=== PATIENT | female | born 1990 | race Two or more races ===

== ENCOUNTER 2017-09-01 09:33 | Outpatient (CLI) | payer OTHER | END 2017-09-01 09:34 | disposition home or self-care (01) | LOC: LAB 09:33 | PROVIDERS: ATTEND Obstetrics & Gynecology | DX: Z36.9 Encounter for antenatal screening, unspecified (principal) | CPT/HCPCS: 36415; 82950; 85018; 86850 ==

== ENCOUNTER 2017-09-27 09:27 | Outpatient (CLI) | payer OTHER | END 2017-09-27 09:28 | disposition home or self-care (01) | LOC: LAB 09:27 | PROVIDERS: ATTEND Obstetrics & Gynecology | DX: Z36.9 Encounter for antenatal screening, unspecified (principal) | CPT/HCPCS: 36415; 82951 ==

== ENCOUNTER 2017-11-13 10:35 | Outpatient (CLI) | payer OTHER | END 2017-11-13 10:36 | disposition home or self-care (01) | LOC: LAB.R 10:35 | PROVIDERS: ATTEND Obstetrics & Gynecology | DX: Z36.85 Encounter for antenatal screening for Streptococcus B (principal) | CPT/HCPCS: 87081; 87491; 87591 ==

== ENCOUNTER 2017-11-14 10:46 | Outpatient (CLI) | payer OTHER ==
[2017-11-14] MEDS ORDERED: SODIUM CHLORIDE FLUSH 0.9% 10 ML SYRINGE ONE (11:26)
[2017-11-14 15:32] VITALS: BP 111/70
== END 2017-11-14 15:50 | disposition home or self-care (01) ==
LOC: WFO 10:46 → FBP 10:48 → WFO 15:50
PROVIDERS: ATTEND Obstetrics & Gynecology
DX: O32.1XX0 Maternal care for breech presentation, not applicable or unspecified (principal); Z3A.36 36 weeks gestation of pregnancy
CPT/HCPCS: 59412

== ENCOUNTER 2017-12-11 07:28 | Inpatient (IN) | payer OTHER ==
--- NOTE | 2017-12-08 09:39 | PREOP HISTORY & PHYSICAL ---
ANTICIPATED FOR 12/11/2017 IDENTIFICATION: A 27-year-old G4, P2-0-1-2 with a 40-5/7-week intrauterine . EDC is 12/06/2017 with an 8-week ultrasound consistent with dates. HISTORY OF PRESENT ILLNESS: The patient is a patient of [facility] who presents on 12/11/2017 for an elective induction of labor. The patient was a transfer from [facility] to us at 23 weeks' gestation. The patient's has essentially been remarkable only for a threatened at about 9 weeks' gestation, and later, malpresentation and a successful external cephalic version at about 37 weeks' gestation. At patient's last visit with us on 12/05/2017 at 39 weeks 6 days, she was noted to be 1-2 cm dilated, very thick, and -3 station. Cervix was very posterior and firm. I discussed with the patient my recommendation to proceed to an elective induction of labor on 12/11/2017 should she still be . The patient lives 30 minutes away and with her last delivery, she presented at 8 cm dilation. She presented to Labor and Delivery with complaints of her back being sore, not specifically for contractions. The patient is currently doing well. Denies any vaginal bleeding, loss of fluid , or nas contractions. Also of note during this , the patient has expressed her desire for permanent sterilization should she need a delivery. She has signed a 11/13/2017 consent for sterilization. PAST MEDICAL HISTORY 1. Anxiety. 2. Remote history of hepatitis A. PAST SURGICAL HISTORY: None. ALLERGIES: NO KNOWN DRUG ALLERGIES. MEDICATIONS: vitamins. SOCIAL HISTORY: She denies any tobacco, alcohol, or illicit drug use. The patient is to [place]. They have a boy and a girl, Marcos and Ivonne. This is a baby girl with an anticipated name of Nupur. They are in the [employer]. Her pharmacy of choice is the [employer] [facility] pharmacy. PAST OBSTETRICAL HISTORY 1. Two term spontaneous vaginal delivery at 40 weeks' gestation. Her biggest baby was her last delivery of daughter, Ivonne, at 7 pounds 13 ounces. She did only receive an epidural with only her second delivery. 2. She had a spontaneous at 9 weeks' gestation. PAST GYNECOLOGY HISTORY: She denies any abnormal Pap smears or sexually transmitted diseases. She did receive a flu vaccine on July 19 and a Tdap on September 27. FAMILY HISTORY: Cervical cancer in the paternal grandmother, diagnosed at age 31. REVIEW OF SYSTEMS: She denies any nausea, vomiting, fevers, chills, diarrhea, constipation. Negative unless otherwise stated. PHYSICAL EXAMINATION VITAL SIGNS: Weight 183 pounds, height is 65 inches, BMI is 30.5, blood pressure 112/62. GENERAL: The patient is a well-developed, well-nourished, Serbian female in no apparent distress. She is alert and oriented x3. CARDIOVASCULAR: Rate is regular. No murmurs or rubs. LUNGS: Lungs are clear to auscultation bilaterally. ABDOMEN: Gravid, nontender. Fundal height is 36 cm. Baby is vertex on palpation LABORATORY: Data shows her white count of 8.2, H and H of 14.5 and 42.7, platelets 309. Rubella is positive. Antibody screen is negative. CT is negative as well as GC. RPR nonreactive. HIV nonreactive. anatomical survey is within normal limits with a 3-vessel umbilical cord. Cervix is closed with a 4.1 cm length. Placenta is posterior. One hour GTT was 139 and her 3-hour was 85, 127, 104, 94. GBS is negative. ASSESSMENT 1. A 27-year-old G4, P2-0-1-2 with a 40-5/7-week intrauterine . 2. Cervix remote from delivery. PLAN 1. We will anticipate Cytotec cervical ripening assuming that there has been no significant cervical change from her last examination. 2. We will obtain a CBC, type and hold as well as an ABO upon admission. 3. Epidural p.r.n. pain. 4. Expect spontaneous vaginal delivery. TD: 12/07/2017 19:08 MAGDA
[2017-12-11] MEDS ORDERED: fentaNYL 100 MCG/2 ML VIAL IVP PRN (07:30)
[2017-12-11] MEDS ORDERED: ONDANSETRON 4 MG/2 ML VIAL IVP PRN (07:30)
[2017-12-11] MEDS ORDERED: SODIUM CHLORIDE FLUSH 0.9% 10 ML SYRINGE IVP SCH (07:30)
[2017-12-11] MEDS ORDERED: miSOPROStol 100 MCG TABLET BC SCH (08:00)
[2017-12-11 08:55] LABS: BASOPHILS % (AUTO) 0.4 %; EOSINOPHILS # (AUTO) 0.1 10^3/uL (0.0-0.7); EOSINOPHILS % (AUTO) 0.7 %; HGB - HEMOGLOBIN 12.3 g/dL (12.0-16.0); LYMPHOCYTES # (AUTO) 1.6 10^3/uL (1.5-3.5); LYMPHOCYTES % (AUTO) 19.1 %; MEAN CORPUSCULAR HEMOGLOBIN 28.5 pg (27.0-31.0); MEAN CORPUSCULAR HGB CONC 34.3 g/dL (32.0-36.0); MEAN PLATELET VOLUME 7.2 fL (7.9-10.8); MONOCYTES # (AUTO) 0.5 10^3/uL (0.0-1.0); MONOCYTES % (AUTO) 6.3 %; NEUTROPHILS # (AUTO) 6.1 10^3/uL (1.5-6.6); NEUTROPHILS % (AUTO) 73.5 %; PLT - PLATELET COUNT 225 10^3/uL (130-450); RED BLOOD COUNT 4.33 10^6/uL (4.20-5.40); RED CELL DISTRIBUTION WIDTH 14.1 % (12.0-15.0); WHITE BLOOD COUNT 8.3 x10^3/uL (4.8-10.8)
[2017-12-11] MEDS: SODIUM CHLORIDE FLUSH 0.9% 10 ML SYRINGE IVP PRN ×2 (09:13→13:44)
[2017-12-11] MEDS: LACTATED RINGERS 1,000 ML IV SCH ×3 (09:14→17:43)
--- NOTE | 2017-12-11 09:50 | PROVIDER PROGRESS NOTE ---
Labor Progress Note - Uterine Monitoring Uterine Monitoring Mode: positive: External toco Contraction Frequency (min/apart): Q4-10 Contraction Intensity: positive: Mild Uterine Resting Tone: positive: Soft - Monitoring Monitor Mode: positive: External ultrasound Heart Rate Baseline: 140's Heart Rate Variability: positive: Moderate (6-25 bmp) Accelerations: positive: Present, 15x15 Decelerations: positive: None Strip Review: positive: Category I - Vaginal Exam Dilation (in cm): 2 Effacement (%): 50 Station: -2 Cervical Position: Posterior - Labor Progress Note Labor Progress Note/Additional Text: 27 yo with a 40w5d IUP Late term Elective induction of labor; cervix remote from delivery Cytotec induction, 50 mcg bucally Q4 hr PRN Epidural PRN Expect Labs, EKG, Meds, Allergy - Lab Results Lab results reviewed: Yes Fish Bones: 12/11/17 08:20 Other Lab Results: Lab Results x24hrs 12/11/17 Range/Units 08:20 WBC 8.3 (4.8-10.8) x10^3/uL RBC 4.33 (4.20-5.40) 10^6/uL Hgb 12.3 (12.0-16.0) g/dL Hct 35.9 L (37.0-47.0) % MCV 83.0 (81.0-99.0) fL MCH 28.5 (27.0-31.0) pg MCHC 34.3 (32.0-36.0) g/dL RDW 14.1 (12.0-15.0) % Plt Count 225 (130-450) 10^3/uL MPV 7.2 L (7.9-10.8) fL Neut # 6.1 (1.5-6.6) 10^3/uL Lymph # 1.6 (1.5-3.5) 10^3/uL Sharkey # 0.5 (0.0-1.0) 10^3/uL Eos # 0.1 (0.0-0.7) 10^3/uL Baso # 0.0 (0.0-0.1) 10^3/uL Absolute Nucleated RBC 0.00 x10^3/uL Nucleated RBC % 0.0 /100WBC - Medications Medications: Ambulatory Orders Medication Instructions Recorded Confirmed Cyclobenzaprine [Flexeril] 10 mg PO TID PRN #20 tablet 09/26/15 HYDROcod/ACETAM 5/325 [Berclair 5/325] 1 - 2 ea PO Q6H PRN #15 tablet 09/26/15 - Allergy Allergy: Allergies Allergy/AdvReac Type Severity Reaction Status Date / Time No Known Drug Allergies Allergy Verified 09/26/15 07:30 Cyclobenzaprine [Flexeril] 10 mg PO TID PRN #20 tablet 09/26/15 HYDROcod/ACETAM 5/325 [Berclair 5/325] 1 - 2 ea PO Q6H PRN #15 tablet 09/26/15
--- NOTE | 2017-12-11 13:27 | PROVIDER PROGRESS NOTE ---
Labor Progress Note - Uterine Monitoring Uterine Monitoring Mode: positive: External toco Contraction Frequency (min/apart): Q2-3 Contraction Intensity: positive: Mild to moderate Uterine Resting Tone: positive: Soft - Monitoring Monitor Mode: positive: External ultrasound Heart Rate Variability: positive: Moderate (6-25 bmp) Accelerations: positive: Present, 15x15 Decelerations: positive: None Strip Review: positive: Category I - Vaginal Exam Dilation (in cm): 2 Effacement (%): 50 Station: -1 Cervical Position: Posterior - Labor Progress Note Labor Progress Note/Additional Text: 27 yo with a 40w5d IUP Reassuring and maternal status Mildly improved station Consistent contractions s/p 1 dose of cytotec 50 mcg buccal Will change patient status to inpatient and start pitocin induction Expect
[2017-12-11] MEDS ORDERED: OXYTOCIN/SODIUM CHLORIDE 500 ML IV SCH (14:00)
--- NOTE | 2017-12-11 14:27 | PROVIDER PROGRESS NOTE ---
Labor Progress Note - Uterine Monitoring Uterine Monitoring Mode: positive: External toco Contraction Frequency (min/apart): Q2-3 Contraction Intensity: positive: Mild to moderate Uterine Resting Tone: positive: Soft - Monitoring Monitor Mode: positive: External ultrasound Heart Rate Baseline: 150's Heart Rate Variability: positive: Moderate (6-25 bmp) Accelerations: positive: Present, 15x15 Decelerations: positive: None Strip Review: positive: Category I - Vaginal Exam Dilation (in cm): 4 Effacement (%): 60 Station: -2 Cervical Position: Posterior - Labor Progress Note Labor Progress Note/Additional Text: 27 yo with a 40w5d IUP. Reassuring and maternal status. Regular contractions S/p 1 dose of buccal cytotec; pitocin not started yet. AROM- clear fluid. Expect . Epidural PRN.
[2017-12-11] MEDS ORDERED: fent/BUPIV 2 MCG/0.125% 250 ML EP ONE (15:38)
[2017-12-11] MEDS ORDERED: fentaNYL 250 MCG/5 ML VIAL ONE (15:42)
[2017-12-11] MEDS ORDERED: BUPIVACAINE 0.75% MPF 30 ML VIAL ONE (15:43)
[2017-12-11] MEDS ORDERED: miSOPROStol 200 MCG TABLET ONE (17:06)
[2017-12-11] MEDS ORDERED: LIDOCAINE 1% 50 ML MDV ONE (17:13)
[2017-12-11] MEDS ORDERED: MINERAL OIL LIGHT 10 ML MC ONE (17:14)
--- NOTE | 2017-12-11 17:27 | PROVIDER PROGRESS NOTE ---
Labor Progress Note - Uterine Monitoring Uterine Monitoring Mode: positive: External toco Contraction Frequency (min/apart): Q2 Contraction Intensity: positive: Moderate Uterine Resting Tone: positive: Soft - Monitoring Monitor Mode: positive: External ultrasound Heart Rate Variability: positive: Moderate (6-25 bmp) Accelerations: positive: Present, 15x15 Decelerations: positive: None Strip Review: positive: Category I - Vaginal Exam Dilation (in cm): 10 Effacement (%): 100 Station: 1 - Labor Progress Note Labor Progress Note/Additional Text: 27 yo with a 40w5d IUP Active labor Epidural in place but working well only on 1 side In and out cath performed Expect
[2017-12-11] MEDS ORDERED: WITCH HAZEL/GLYCERIN 1 EACH MED..PAD TOP PRN (18:46)
[2017-12-11] MEDS ORDERED: MAGNESIUM HYDROXIDE 2,400 MG/30 ML UDC PO PRN (18:46)
[2017-12-11] MEDS ORDERED: HYDROcod/ACETAM 5/325 MG TABLET PO PRN (18:46)
[2017-12-11] MEDS ORDERED: OXYTOCIN/SODIUM CHLORIDE 250 ML IV ONE (18:46)
[2017-12-11] MEDS: ACETAMINOPHEN 325 MG TABLET PO PRN (19:17)
--- NOTE | 2017-12-11 19:19 | DELIVERY NOTE ---
Delivery Note - Labor Labor: positive: Augmented by ARM, Augmented by oxytocin, Other (Cytotec 50 mcg buccal x 1) - Delivery Method Infant Delivery Method: positive: Spontaneous vaginal delivery - Presentation Presentation: positive: Vertex, OA - occiput anterior - Nuchal Cord Nuchal Cord: positive: None - Anesthetic Anesthetic: positive: Lidocaine - 1% plain Volume: positive: Other (10) - Amniotic Fluid Description Amniotic Fluid Description: positive: Clear - Episiotomy Type Episiotomy Type: positive: None - Laceration Laceration: positive: 2nd degree, Perineal - Suture Suture Type: positive: Vicryl Suture Size: positive: 3-0, 4-0 - Delivery Outcome Delivery Outcome: positive: Livebirth - Parmele: positive: Placed in direct skin contact with mother Parmele sex: positive: Female : 9 : 9 - Cord Cord: positive: 3 vessels - Placenta Placenta: positive: Intact, Spontaneous - Estimated Blood Loss Estimated Blood Loss (in cc): 250 - Post Delivery Events Post Delivery Events: positive: No post delivery events - Delivery Comments (Free Text/Narrative) Delivery Comments (Free Text/Narrative): 27 yo with a 40w5d IUP was admitted for a late term induction of labor. Lauren recieved one dose of cytotec 50 mcg buccally. AROM revealed clear fluid. She received an epidural by Brandt Maddox CRNA for pain control. Pitocin augmentation. of a viable female fetus, "Loida". Apgars 9/9. Weight 8 lbs 2 oz. 2nd degree midline laceration repaired with 3-0 vicryl. 1st degree right vulvar laceration repaired with 4-0 vicryl. Placenta delivered spontaneously, intact with a 3VC. EBL 250 mL. No complications. Routine care. Rx vicodin handwritten, Rx motrin sent to [facility] pharmacy.
[2017-12-11] MEDS ORDERED: ZOLPIDEM 5 MG TABLET PO PRN (21:00)
[2017-12-11] MEDS: DOCUSATE SODIUM 100 MG CAPSULE PO SCH (21:19)
[2017-12-11] MEDS: CELECOXIB 100 MG CAPSULE PO SCH (21:19)
[2017-12-12] MEDS: ACETAMINOPHEN 325 MG TABLET PO PRN (06:52)
[2017-12-12] MEDS: CELECOXIB 100 MG CAPSULE PO SCH (09:04)
[2017-12-12] MEDS: DOCUSATE SODIUM 100 MG CAPSULE PO SCH (09:05)
--- NOTE | 2017-12-12 10:51 | PROVIDER PROGRESS NOTE ---
Subjective - Prog Note Date Prog Note Date: 12/12/17 Prog Note Time: 10:49 - Subjective Pt reports feeling: Improved Subjective: Patient doing well. Sitting in bed visiting with and family member. Decreasing lochia. No dysuria. Ambulating and tolerating regular diet. Desires to go home this evening at 24 hours. Objective - Vital Signs/Intake & Output Reviewed Vital Signs: Yes Vital Signs: Vital Signs x48h Temp Pulse Resp BP Pulse Ox 12/12/17 08:02 98.4 F 73 15 103/64 12/12/17 05:00 98.8 F 70 16 105/63 98 Intake & Output: Intake & Output 12/09/17 12/10/17 12/11/17 12/12/17 23:59 23:59 23:59 23:59 Intake Total 848.549 600 Output Total 1400 Balance 848.549 -800 - Objective General Appearance: positive: No acute distress Eyes Bilateral: positive: Normal inspection Abdomen: positive: Non-tender (Firm fundus) Extremities: positive: Non-tender Neurologic/Psychiatric: positive: Oriented x3 - Lab Results Fish Bones: 12/11/17 08:20 Assessment/Plan - Problem List (1) Vaginal delivery Impression: 27 yo S/p , PPD #1 Normal recovery Discharge to home at 24 hours delivery Rx motrin faxed to [facility]. Handwritten Rx vicodin Follow up with Rj in 3 and then 8 weeks Discharge Plan Disposition: 01 Home, Self Care Condition: Good Diet: Regular Activity Restrictions: Activity as Tolerated Shower Restrictions: No Driving Restrictions: Yes (Do not drive after taking vicodin) Weight Bearing: Full Weight No Smoking: If you smoke, Please STOP! Call for help.
--- NOTE | 2017-12-12 11:21 | DISCHARGE SUMMARY ---
DATE OF ADMISSION: 12/11/2017 DATE OF DISCHARGE: 12/12/2017 DIAGNOSES ON ADMISSION 1. A 27-year-old, G4, P2-0-1-2, with a 40 and 5/7 week intrauterine . 2. Cervix remote from delivery. DIAGNOSES ON DISCHARGE 1. A 27-year-old, G4, P3-0-1-3, status post spontaneous vaginal delivery on . 2. Normal recovery. BRIEF HISTORY: The patient is a patient of [facility] who presented on 12/11/2017 at 40 weeks, 5 days for an elective induction of labor secondary to late term. The patient was given 1 dose of Cytotec and then artificially ruptured. She received an epidural for pain control, as well as Pitocin for augmentation. The patient spontaneously delivered a viable female , named Loida. Apgars were 9 and 9 at one and five minutes respectively , and she weighed 8 pounds 2 ounces. EBL was 250 mL. The patient sustained a second-degree midline laceration that was repaired with 3-0 Vicryl and a first degree right labial laceration that was repaired with 4-0 Vicryl. There were no complications. The patient's course has been unremarkable. She is ambulating and tolerating a regular diet. She is urinating without difficulty and her pain is controlled with oral medications. The patient verbalized her desire to go home later this evening when she gets to 24 hours . The patient will be given a prescription for Vicodin and a prescription for Motrin has been already sent to the [facility] in [place], [place]. The patient is to see me at [facility] in 3 and 8 weeks for routine post- visits. She is to call should she have any worsening fever , chills, abdominal pain or vaginal bleeding. TD: 12/12/2017 11:20 MAGDA
[2017-12-12 12:41] LABS: HEPATITIS B SURFACE ANTIGEN NON-REACTIVE (NON-REACTIVE)
[2017-12-12 16:25] VITALS: BP 119/80
--- NOTE | 2017-12-12 21:00 | Labor Flowsheet ---
Labor Flowsheet Datetime Report Generated by CPN: 12/12/2017 21:00 Datetime: 12/12/2017 07:52 VITAL SIGNS NBP Sys/Karen/Mean (mmHg): 103 : 64 : 72 Pulse: 73 LaborFlag: Labor Datetime: 12/11/2017 18:15 UTERINE ACTIVITY Monitor Mode: External Frequency (min): 2-4 Quality: Strong Duration (sec): 60-120 Pattern: Normal: <= 5 Contractions in 10 Minutes Resting Tone (Palpate): Relaxed ASSESSMENT A Monitor Mode: External US FHR Baseline Rate : 145 Variability: Moderate 6-25 bpm Accelerations: None Decelerations: Variable (Annotations: variables with pushing.) Actions for Decelerations: provider at bedside. Pt pushing. Vigorous female at 1815. Datetime: 12/11/2017 18:00 Respirations: 18 SpO2 (%): 100 Category: Category I Anesthesia Level Check: T10- Umbilicus Datetime: 12/11/2017 17:45 MEDICATIONS Pitocin (milliunits): Increased to @ 2 Datetime: 12/11/2017 17:41 Patient Position/Activity: Right Lateral Datetime: 12/11/2017 17:10 Temperature (C): 36.9 Temperature Route: Oral Datetime: 12/11/2017 17:05 Vaginal Bleeding: Normal Show Datetime: 12/11/2017 16:47 PATIENT CARE Oxygen Amount (LPM): 10 Oxygen Method: Face Mask Datetime: 12/11/2017 16:14 Epidural Procedure: Loading Dose Datetime: 12/11/2017 15:44 PROCEDURE TIME OUT Procedure Verify: Correct Patient Identity; Correct Side and Site are Marked; Accurate Procedure Co nsent Form; Agreement on Procedure to be Done; Correct Patient Position; Relevant Images and Results are Properly Labeled and Displayed; Addressed Need to Administer Antibiotics or Fluids for Irrigation ; Safety Precautions Based on Patient History or Medication Use ANESTHESIA Anesthesia Plans: Epidural Epidural Positioning: Sitting Datetime: 12/11/2017 15:43 Anesthesia Interview: W Datetime: 12/11/2017 15:40 I/O Interventions: Up to BR (Annotations: 200 ml) Datetime: 12/11/2017 15:24 COMMUNICATION Communication: Call/Page Placed to Provider Provider Notified (Name): Communication Comments: Chin updated that pt requests epidural and current vag exam Datetime: 12/11/2017 15:21 VAGINAL EXAM Dilatation (cm): 4.0 Effacement (%): 90 Station: -1 Exam by: Ying Navarro RN Datetime: 12/11/2017 15:20 Pain Assessment Comments: Pt requests epidural Datetime: 12/11/2017 15:19 Patient Care Comments: LR bolus started Datetime: 12/11/2017 15:15 Pitocin Checklist: At Least 1 Acceleration of 15 bpm x 15 Seconds in 30 Minutes or Adequate Variabi lity; No More than 1 Late Deceleration Occurred in Past 30 Minutes; No More than 2 Variable Decelerat ions > 60 Seconds in Duration and decreasing >60 bpm in 30 minutes; No More than 5 Uterine Contractio ns in 10 Minutes for any 20 Minute Interval; Uterus Palpates Soft between Contractions Datetime: 12/11/2017 14:18 Membrane Status: Ruptured Membranes Ruptured Date/Time: 12/11/2017 14:18 Membranes Rupture Method: Artificial Amniotic Fluid Color: Clear Amniotic Fluid Amount: Moderate Amniotic Fluid Odor: Normal Datetime: 12/11/2017 14:00 Monitor Interventions for UA: [place] Adjusted Datetime: 12/11/2017 13:05 Strip Reviewed by: Dr. Rj Datetime: 12/11/2017 12:30 PAIN Pain Scale: 0 Pain Presence: None/Denies Datetime: 12/11/2017 12:08 Comments: pt. up to bathroom, readjust monitor Datetime: 12/11/2017 12:00 FHR Baseline Changes: No Baseline Change Datetime: 12/11/2017 10:35 Stage of : Labor Datetime: 12/11/2017 09:13 Cervical Ripening Agents: Cytotec @ (Annotations: 50 mcg buccally)
== END 2017-12-12 20:25 | disposition home or self-care (01) | DRG 775 ==
LOC: WFO 07:28 → FBP 07:30 → OBSVTOIN 13:23
PROVIDERS: ADMIT Obstetrics & Gynecology; ATTEND Obstetrics & Gynecology
PROC: 10E0XZZ Delivery of Products of Conception, External Approach (ICD-10-PCS; principal; 2017-12-11)
PROC: 0KQM0ZZ Repair Perineum Muscle, Open Approach (ICD-10-PCS; 2017-12-11)
PROC: 3E0P7VZ Introduction of Hormone into Female Reproductive, Via Natural or Artificial Opening (ICD-10-PCS; 2017-12-11)
PROC: 10907ZC Drainage of Amniotic Fluid, Therapeutic from Products of Conception, Via Natural or Artificial Opening (ICD-10-PCS; 2017-12-11)
DX: O48.0 Post-term pregnancy (principal); O70.1 Second degree perineal laceration during delivery; Z3A.41 41 weeks gestation of pregnancy; Z37.0 Single live birth
CPT/HCPCS: 85025; 86900; 86901; 87340

== ENCOUNTER 2018-03-13 10:43 | Outpatient (CLI) | payer OTHER ==
[2018-03-13 11:54] LABS: HCG UR QUAL NEGATIVE
== END 2018-03-13 10:44 | disposition home or self-care (01) ==
LOC: LAB 10:43
PROVIDERS: ATTEND Obstetrics & Gynecology
DX: Z01.812 Encounter for preprocedural laboratory examination (principal); Z30.2 Encounter for sterilization
CPT/HCPCS: 81025

== ENCOUNTER 2018-03-14 06:13 | Day surgery (SDC) | payer OTHER ==
--- NOTE | 2018-03-13 11:02 | PREOP HISTORY & PHYSICAL ---
DATE OF ADMISSION: 03/14/2018 Physician: Noelle De La Rosa DO IDENTIFICATION: A 28-year-old G4, P 3-0-1-3. HISTORY OF PRESENT ILLNESS: Patient presents today to [facility] for her scheduled preoperative visit. Patient has verbalized her desire for permanent sterilization. She delivered her daughter Loida on 12/11/2017. She had a spontaneous vaginal delivery and the baby weighed 8 pounds 2 ounces. Lauren sustained a second-degree midline laceration. Currently patient is doing well, although she does feel tired. The baby is 13 pounds at her 3-month visit. Baby Loida is currently . Margarita otherwise denies any nausea, vomiting, fevers, chills, diarrhea or constipation. PAST MEDICAL HISTORY: None. PAST SURGICAL HISTORY: None. ALLERGIES: SHE HAS NO KNOWN DRUG ALLERGIES. MEDICATIONS: None. SOCIAL HISTORY: She denies any tobacco, alcohol, or illicit drug use. Her is Darien, who is an stage electrician helper in the [employer]. Darien is scheduled for deployment in about 2 months. They have 3 children now, son Marcos , who is 7 years old; Ivonne, who is 4 years old; and 3-month-old Loida. Patient is a homemaker. Their pharmacy of choice is [facility]. PAST SURGICAL HISTORY 1. One spontaneous . 2. Three term spontaneous vaginal deliveries. PAST GYNECOLOGICAL HISTORY: She denies any abnormal Pap smears or sexually transmitted diseases. She has monthly menses and bleeds for seven days. She denies any cramping or heavy bleeding. Pap smear 01/18/2018 was negative for intraepithelial lesion or malignancy. FAMILY HISTORY: Paternal grandmother had cervical cancer in her late 30s. REVIEW OF SYSTEMS: Negative unless otherwise stated. PHYSICAL EXAMINATION VITAL SIGNS: Height is 65 inches, weight 171 pounds, BMI 28.5, blood pressure 118/66. GENERAL: Patient is a well-developed, well-nourished female, in no apparent distress. She is alert and oriented x3. Patient is very pleasant and easy to speak to. HEENT: Within normal limits. She does wear glasses. HEART: Rate is regular. No murmurs, rubs. LUNGS: Lungs are clear to auscultation bilaterally. ABDOMEN: Soft, nontender. No rebound, rigidity or guarding. ASSESSMENT AND PLAN 1. A 28-year-old G4, P3-0-1-3. 2. Desired permanent sterilization. I had a long discussion with patient regarding the risks, benefits, alternatives, indications, expectations of laparoscopic bilateral salpingectomy for permanent sterilization. I counseled patient that my preference of choice is a bilateral salpingectomy as far the literature has indicated it reduces her risk of ovarian cancer. Included in the risk were hemorrhage, infection and damage to other organs, which include an inadvertent laceration or cauterization of adjacent intestines, bladder, ovaries and ureters. For this surgery the most common complication is regret. Patient understands that with this procedure this is not her only form of contraception. Available to Patient is vasectomy, control pills, Ortho- Evra, NuvaRing Nexplanon, the Mirena IUD and the ParaGard IUD. Patient also understands that this procedure is meant to be permanent and irreversible. There is a tubal failure rate of less than 1%. After all of patient's questions were answered to her satisfaction, she verbalized her desire to proceed with surgery. Consent forms have been signed. 3. Patient will get a urine hCG today in preparation for tomorrow's surgery. 4. I have counseled patient to take [id number] medication including Motrin and Tylenol. She was given a prescription for Vicodin for any breakthrough pain that she may experience. 5. Patient is to call should she have any worsening fevers, chills or abdominal pain after surgery. 6. Patient to see me at [facility] in 2 weeks for routine postop visit. TD: 03/13/2018 10:45 MAGDA
[2018-03-14] MEDS ORDERED: CELECOXIB 100 MG CAPSULE PO ONE (06:35)
[2018-03-14] MEDS ORDERED: LACTATED RINGERS 1,000 ML IV ONE ×2 (06:49→08:45)
[2018-03-14] MEDS ORDERED: LIDOCAINE 1%-EPI 1:100000 30 ML MDV ONE (07:16)
[2018-03-14] MEDS ORDERED: LIDOCAINE 1%-EPI 1:100000 20 ML MDV SUBQ ONE ×2 (08:00)
[2018-03-14] MEDS ORDERED: NEOSTIGMINE 1 MG/1 ML 10 ML MDV IVP ONE (08:36)
[2018-03-14] MEDS ORDERED: GLYCOPYRROLATE 1 MG/5 ML VIAL IVP ONE (08:36)
[2018-03-14] MEDS ORDERED: fentaNYL 100 MCG/2 ML VIAL IVP ONE (08:36)
[2018-03-14] MEDS ORDERED: ROCURONIUM 50 MG/5 ML VIAL IVP ONE (08:36)
[2018-03-14] MEDS ORDERED: PROPOFOL 200 MG/20 ML VIAL IVP ONE (08:36)
[2018-03-14] MEDS ORDERED: ONDANSETRON 4 MG/2 ML VIAL IVP ONE (08:36)
[2018-03-14] MEDS ORDERED: LIDOCAINE-MPF 2% 5 ML VIAL IM ONE (08:36)
[2018-03-14] MEDS ORDERED: KETOROLAC 30 MG/ML VIAL IVP ONE (08:36)
--- NOTE | 2018-03-14 08:45 | OPERATIVE REPORT ---
Operative Report - Other Other Information/Narrative: Date of Operation: 03/14/2018 Surgeon: Noelle De La Rosa DO FACOG Drive Man: None Anesthesiologist: Dex Tomlinson MD Anesthesia: GET Pre-Op Dx: 1. 28 yo 2. Desired permanent sterilization Post-Op Dx: 1. 28 yo 2. Desired permanent sterilization Procedure: Laparoscopic bilateral salpingectomy Findings: 1. Normal uterus, ovaries and fallopian tubes 2. Normal appendix and liver edge Specimens: Bilateral fallopian tubes Drains: None EBL: 0 mL Complications: None OP Note Dictation #: [id number]
[2018-03-14] MEDS ORDERED: MEPERIDINE 50 MG/ML VIAL ONE (09:29)
--- NOTE | 2018-03-14 10:10 | OPERATIVE REPORT ---
DATE OF OPERATION: 03/14/2018 SURGEON: Noelle De La Rosa D.O., FACOG CLINICAL APPLICATION SPECIALIST: None. ANESTHESIOLOGIST: Dex Tomlinson M.D. ANESTHESIA: General endotracheal tube. PREOPERATIVE DIAGNOSES: 1. A 28-year-old G4, P3-0-1-3. 2. Desired permanent sterilization. POSTOPERATIVE DIAGNOSES: 1. A 28-year-old G4, P3-0-1-3. 2. Desired permanent sterilization. PROCEDURE: Laparoscopic bilateral salpingectomy. FINDINGS: 1. Normal uterus, ovaries and fallopian tubes. 2. Normal appendix and liver edge. SPECIMENS: Bilateral fallopian tubes. DRAINS: None. ESTIMATED BLOOD LOSS: 0 mL COMPLICATIONS: None. BRIEF HISTORY: This is a patient of [facility], who verbalized desire for permanent sterilization. I discussed with the patient the risks, benefits, alternatives and indications of expectations of a laparoscopic bilateral salpingectomy including our discussion of the risks of hemorrhage, infection and damage to surrounding organs. With respect to damage to surrounding organs, this may include but is not limited to an inadvertent laceration, cauterization or ligation of the adjacent intestines, bladder and ureters. With this procedure, the patient understands that this is meant to be permanent and irreversible. She also understands that this is not her only method of contraception and control pills, Ortho Evra, NuvaRing, Mirena IUD and ParaGard IUD to name a few are available to her should she desire this. Her also may undergo vasectomy for control. After all of the patient's questions were answered to her satisfaction, she verbalized her desire to proceed with the aforementioned surgery. Consent forms have been signed. OPERATION IN DETAIL: The patient was identified, consented, and taken to the operating room, where IV accesses were then placed. She was given sequential compression devices which were placed on her lower extremities and turned on. The patient had been given satisfactory general endotracheal tube anesthesia as per Dr. Tomlinson. Antibiotics were not indicated in this case. The patient was then prepped and draped in normal sterile fashion in the supine position. Her bladder was drained with in and out Romero catheter. 500 mL of urine were obtained. Timeout was performed, which correctly identified the patient, site of the procedure, and the procedure itself. Three laparoscopic port sites were first identified. They were all of 3 mm in length and were located in subumbilical fold in left and right lower quadrants. Lower quadrant sites were identified by first identifying their respective anterior superior iliac spine and then moving 2 fingerbreadths superior and medial from those locations. All port sites were injected with 1% lidocaine with epinephrine. These port sites were reinjected at the termination of the case for better postoperative pain control. A total of 20 mL were used for the entirety of the case. Stab incisions were made. Entrance to the abdomen was first made with the 5 mm Visiport trocar directly. No trauma to intraabdominal organs was noted. After visual confirmation of entry into the abdomen was made, CO2 gas was used to insufflate the abdomen. Satisfactory pneumoperitoneum was then obtained. The 2 lower quadrant laparoscopic port sites were then placed under direct visualization with the camera. No trauma to intraabdominal organs were noted. Survey of the abdomen and pelvis revealed normal anatomy. There were normal uterus, ovaries and fallopian tubes, as well as appendix and liver edge. There were no signs of [id number]-Bvzefr nor endometriosis. Adhesions were also not appreciated at the time of surgery. The right fallopian tube was first identified and followed out to its fimbriated end. The fallopian tube was then excised by using the LigaSure. The fallopian tube was then removed through one of the trocar port sites. In a similar fashion, the left fallopian tube was identified and then excised. This tube as well was removed out through the 5 mm trocar port. Reinspection of the cauterized tissue revealed that it was hemostatically stable. Photos were retaken. The case was concluded at this point in time. All instruments were removed out of the abdomen and the CO2 gas was allowed to egress into the atmosphere, relieving the pneumoperitoneum. All 3 laparoscopic port sites were then closed with 4-0 Monocryl in subcuticular fashion. Dermabond was finally placed on top of the incisions. All sponge, lap and needle counts were correct times two as per nurse report. The patient tolerated the procedure well and was taken back to recovery room in stable condition. The patient will be discharged to home later today after postoperative criteria are met. The patient is to followup with myself at [facility] in 2 weeks for routine postop visit. She has been instructed to take ibuprofen as well as Tylenol as her main form of pain control. She has a prescription for Vicodin for any breakthrough pain she may experience. The patient understands to call should she have any worsening fevers, chills, abdominal pain or vaginal bleeding. TD: 03/14/2018 08:58 MAGDA
[2018-03-14 10:14] VITALS: BP 104/64
== END 2018-03-14 06:14 | disposition home or self-care (01) ==
LOC: SDS 06:13
PROVIDERS: ATTEND Obstetrics & Gynecology
PROC: 0UT74ZZ Resection of Bilateral Fallopian Tubes, Percutaneous Endoscopic Approach (ICD-10-PCS; principal; 2018-03-14 07:30)
DX: Z30.2 Encounter for sterilization (principal)
CPT/HCPCS: 58661; A9270; J2175; J7120